=== PATIENT | female | born 1990 | race Caucasian/White ===

== ENCOUNTER 2020-08-06 07:13 | Inpatient (IN) ==
[2020-08-06] MEDS ORDERED: OXYTOCIN 30 UNITS/500 ML BAG IV PRN (07:32)
[2020-08-06] MEDS ORDERED: LACTATED RINGER'S 1,000 ML IV PRN (07:32)
[2020-08-06] MEDS ORDERED: fentaNYL citrate 100 MCG/2 ML VIAL ONE (07:44)
[2020-08-06] MEDS ORDERED: BUPIVACAINE 0.25% 30 ML VIAL ONE (07:44)
[2020-08-06] MEDS ORDERED: ePHEDrine sulfate 50 MG/ML AMP ONE (07:44)
[2020-08-06] MEDS ORDERED: SODIUM CHLORIDE 0.9% INJ 10 ML VIAL ONE (07:44)
[2020-08-06] MEDS ORDERED: fentaNYL 2MCG/ML ROPIVACAINE 1.25MG/ML 100 ML BAG EPI ONE (07:45)
--- NOTE | 2020-08-06 07:47 | Labor Progress Brief Note ---
Date of Service August 06, 2020 Subjective at 39wk called this AM to report contractions Q3min, no LOF, no VB, good FM. Uncomplicated preg. Advised to come to L&D. Assessment & Plan (1) Normal labor and delivery: Admit, epidural being requested now, anticipate spontaneous vaginal delivery. Admission and Anticipated Discharge Date Admission Date: August 06, 2020 Physical Exam Physical Exam: Per RN exam, 6cm with bulging bag. FHT Cat 1 [place] Q3m Results & Data ([facility]) Vital Signs (Past 12 Hours) Vital Signs Pulse BP 08/06/20 07:24 73 123/72 Coding Level of Care Code None Diagnoses Normal labor and delivery O80
--- NOTE | 2020-08-06 07:53 | Anesthesiology Consultation ---
Date of Service August 06, 2020 Assessment & Plan (1) Encounter for pre-operative examination: Chart Review Chart Review: Acceptable Risk for Labor Epidural (Labs pending) History Allergies Allergy/AdvReac Type Severity Reaction Status Date / Time No Known Allergies Allergy Verified 08/03/20 14:45 Medications Home Medications Medication Instructions Recorded Confirmed Last Taken prenat.vits,moy,gql-sosu-fdnky 1 tab PO DAILY 01/03/20 08/03/20 Unknown citalopram 20 mg tablet 20 mg PO DAILY #30 tab 06/26/20 08/03/20 Unknown Past Medical History Medical History Anxiety Depression Past Family History Family History Mother Ovarian cancer Grandmother (Maternal) Ovarian cancer Aunt Ovarian cancer Past Surgical History Surgical History H/O atrial septal defect repair History of laparoscopy History of mandibular surgery Social History Smoking Status: Never smoker Physical Exam Vital Signs Last Vital Signs Pulse 73 08/06/20 07:24 BP 123/72 08/06/20 07:24
[2020-08-06 08:19] LABS: Hematocrit (blood only) 32.9 % (37-47); Hemoglobin 11.3 g/dL (12.0-16.0); Mean Corpuscular Hemoglobin 29.4 pg (25-34); Mean Corpuscular Hgb Conc 34.3 g/dL (32-36); Mean Corpuscular Volume 85.7 fL (80-100); Mean Platelet Volume 9.7 fL (7.4-10.4); Platelet Count 240 K/uL (130-400); RDW Coefficient of Variation 14.3 % (11.5-14.5); RDW Standard Deviation 44.3 fL (36.4-46.3); Red Blood Count 3.84 M/uL (4.2-5.4); White Blood Count 11.32 K/uL (4.8-10.8)
[2020-08-06] MEDS ORDERED: LIDOCAINE 1% LOCAL 20 ML VIAL ONE (08:30)
--- NOTE | 2020-08-06 09:02 | Delivery Summary ---
Vaginal Delivery Summary Date of Service August 06, 2020 Vaginal Delivery Summary DIAGNOSES: 1. Gates intrauterine at 39w gestation. 2. Spontaneous onset of labor. 3. Group B Streptococcus Neg. PROCEDURE: Spontaneous vaginal delivery and repair of Second degree laceration. SURGEON: Macrina Barahona MD. WOOD TILE INSTALLATION HELPER: None. ESTIMATED BLOOD LOSS: 350 mL. COMPLICATIONS: None. PLACENTA: Spontaneous and intact with a 3-vessel cord. DISPOSITION: Stable to labor and delivery. DESCRIPTION: The patient pushed well and brought the head to in DOA position. The shoulders delivered easily with a maternal pushing effort. There was a tight nuchal cord, but mom was pushing rapidly due to lack of epidural and delivered the baby straight through it. The right shoulder was anterior. The shoulders and body delivered without any difficulty, and the infant was placed on the maternal abdomen. It was vigorous and moving all extremities, and making respiratory efforts. The cord was doubly clamped by the MD and then cut by the FOB. The placenta delivered spontaneously and was noted to be intact and with a 3VC. The cervix, vagina and perineum were examined and were found to have a second degree laceration and what appeared to be the beginning of a R vaginal sidewall hematoma at the level of the hymenal ring, tracking superiorly, about the size of a grape. A right angle retractor was placed and used to hold pressure on this while lidocaine 1% was administered 10cc to the area and repair of the 2nd degree laceration proceeded in the usual manner, including two crown sutures to rebuild the perineal body. The patient was offered IV pain management several times during this process but declined. Additionally, resuscitation of the at the warmer was proceeding as the infant demonstrated failure to increase its oxygen saturation appropriately in the first few minutes, and supplemental oxygen was provided. The pediatric team did note the mother's use of celexa. See their documentation for full information on the resuscitation, which was successful and the infant was able to be swaddled and brought to mom for cuddles a few minutes later. The vaginal hematoma was re-examined off pressure after the second-degree was repaired, and had not developed any further. There was no discoloration of the perineal or gluteal skin other than what is present at baseline for this patient, and no palpable collection larger than the original grape-sized bluish bulge. The nurses were shown the area to allow comparison with future exams, if needed, and several minutes of continued observation demonstrated stability. A right pe riurethral abrasion was hemostatic and left un-sutured. The fundus was firm and lochia minimal immediately after delivery. [facility] [place] Vaginal Delivery Codes: 64911 global code for the antepartum, delivery, and post-
[2020-08-06] MEDS ORDERED: SUPERCREAM 0.870% 15 GM JAR EXT PRN (09:08)
[2020-08-06] MEDS ORDERED: oxyCODONE/ACETAMINOPHEN 5mg/325mg TAB PO PRN (09:08)
[2020-08-06] MEDS ORDERED: HYDROCORTISONE ACETATE 25 MG SUPP PR PRN (09:08)
[2020-08-06] MEDS ORDERED: BENZOCAINE 20% AER SPR 82.5 GM CAN EXT PRN (09:08)
[2020-08-06] MEDS ORDERED: DIPHTHERIA/TETANUS/PERTUSSIS 0.5 ML SYR/VIAL IM ONE (09:08)
[2020-08-06] MEDS: CITALOPRAM 20 MG TAB PO SCH (09:27)
[2020-08-06] MEDS: IBUPROFEN 600 MG TAB PO PRN ×3 (10:13→23:31)
[2020-08-06] MEDS: ACETAMINOPHEN 325 MG TAB PO PRN ×2 (13:10→20:00)
[2020-08-06] MEDS: DOCUSATE SODIUM 100 MG CAP PO SCH (20:04)
[2020-08-07] MEDS: ACETAMINOPHEN 325 MG TAB PO PRN ×2 (02:59→08:11)
[2020-08-07] MEDS: IBUPROFEN 600 MG TAB PO PRN ×3 (05:16→20:28)
[2020-08-07 06:11] LABS: Hematocrit (blood only) 21.8 % (37-47); Hemoglobin 7.4 g/dL (12.0-16.0); Mean Corpuscular Hemoglobin 29.7 pg (25-34); Mean Corpuscular Hgb Conc 33.9 g/dL (32-36); Mean Corpuscular Volume 87.6 fL (80-100); Mean Platelet Volume 8.9 fL (7.4-10.4); Platelet Count 197 K/uL (130-400); RDW Coefficient of Variation 14.8 % (11.5-14.5); RDW Standard Deviation 46.6 fL (36.4-46.3); Red Blood Count 2.49 M/uL (4.2-5.4); White Blood Count 10.15 K/uL (4.8-10.8)
--- NOTE | 2020-08-07 06:38 | Obstetrical Progress Note ---
Date of Service August 07, 2020 Assessment & Plan (1) Normal labor and delivery: Recovering normally. Having some discomfort at tailbone / bottom and also needing to pump and syringe feed baby due to poor latching and energy on the part of the , so will stay until PPD#2 to receive help with these issues. Subjective Ambulation: ambulating normally Voiding: no voiding problems Passing Gas:: Yes Diet Tolerance:: regular diet Lochia:: Small Feeding Type:: breast feeding Physical Exam Constitutional WD/WN, vitals as above Eyes PERRL, conjunctivae normal, anicteric sclerae Neck normal visual inspection Respiratory normal respiratory effort and able to speak in complete sentences; no respiratory distress and no labored breathing Cardiovascular Rate/Rhythm: regular rate and regular rhythm Extremities: no edema Chest (Breasts) Chest: normal inspection of chest Gastrointestinal (Abdomen) Inspection/Auscultation: abdomen normal to inspection Soft, postgravid Psychiatric A+Ox3, euthymic affect Genitourinary OB Exam Abdomen: + fundal height Fundus: + firm and + relation to umbilicus (fundus just below umbilicus); not tender Results & Data ([facility]) Vital Signs (Past 12 Hours) Vital Signs Temp Pulse Resp BP Pulse Ox 08/07/20 03:00 97.5 F L 74 16 128/78 99 08/06/20 23:15 99.0 F 84 16 120/59 L 98 08/06/20 19:35 98.8 F 90 16 122/71 98
[2020-08-07] MEDS: DOCUSATE SODIUM 100 MG CAP PO SCH ×2 (08:07→21:02)
[2020-08-07] MEDS: PRENATAL VITAMIN 1 TAB PO SCH (08:07)
[2020-08-07] MEDS: CITALOPRAM 20 MG TAB PO SCH (08:14)
[2020-08-08] MEDS: IBUPROFEN 600 MG TAB PO PRN ×2 (00:23→06:47)
[2020-08-08 07:00] LABS: Hematocrit (blood only) 20.9 % (37-47); Hemoglobin 6.9 g/dL (12.0-16.0)
--- NOTE | 2020-08-08 07:54 | Obstetrical Progress Note ---
Date of Service August 08, 2020 Assessment & Plan (1) Encounter for care and examination after delivery: 30yo Day 1 s/p . Doing well. Denies anemia symptoms. Discussed pRBCs for Hgb of 6.9 - declined by patient. Stable for discharge Subjective Ambulation: ambulating normally Voiding: no voiding problems Passing Gas:: Yes Diet Tolerance:: regular diet Lochia:: Moderate Feeding Type:: breast feeding Denies anemia symptoms Physical Exam Constitutional WD/WN, vitals as above Respiratory normal respiratory effort; no respiratory distress and no labored breathing Gastrointestinal (Abdomen) Inspection/Auscultation: abdomen normal to inspection; abdomen not distended Percussion/Palpation: abdomen soft; abdomen nontender, no guarding and abdomen not rigid Genitourinary OB Exam Abdomen: + fundal height Fundus: + firm and + relation to umbilicus (Below); not tender and not boggy Results & Data ([facility]) Vital Signs (Past 12 Hours) Vital Signs Temp Pulse Resp BP Pulse Ox 08/08/20 00:00 36.8 C 74 16 114/72 97
[2020-08-08] MEDS: DOCUSATE SODIUM 100 MG CAP PO SCH (08:35)
[2020-08-08] MEDS: PRENATAL VITAMIN 1 TAB PO SCH (08:35)
[2020-08-08] MEDS: CITALOPRAM 20 MG TAB PO SCH (08:36)
[2020-08-08] MEDS ORDERED: Nursing to Pharmacy Communication SCH (09:45)
[2020-08-08] MEDS ORDERED: FERROUS SULFATE 325 MG TAB PO ONE (10:00)
[2020-08-08] MEDS ORDERED: FERROUS SULFATE 325 MG TAB PO SCH (10:00)
[2020-08-09] MEDS ORDERED: FERROUS SULFATE 325 MG TAB PO SCH (08:00)
== END 2020-08-08 13:57 | disposition home or self-care (01) | DRG 807 ==
LOC: OPB 07:13 → 4S1 07:17 → 4S2 14:20